=== PATIENT | male | born 1980 | race Caucasian/White ===

== ENCOUNTER 2018-04-05 14:34 | Emergency (ER) | payer OTHER ==
[2018-04-05] MEDS ORDERED: Ondansetron PF 4 MG/2 ML Vial ONE (15:07)
[2018-04-05] MEDS ORDERED: Morphine 4 MG/ML Carpuject ONE ×2 (15:07→16:17)
[2018-04-05 15:09] LABS: #Basophils 0.1 thou/uL (0.0-0.2); #Lymphocytes 1.9 thou/uL (1.20-3.40); #Monocytes 0.5 thou/uL (0.11-0.59); #Neutrophils 4.1 thou/uL (1.40-6.50); %Basophils 1.9 % (0.0-1.0); %Eosinophils 0.6 % (0.0-10.0); %Lymphocytes 28.9 % (21.0-51.0); %Monocytes 7.5 % (0.0-10.0); Mean Corpuscular HGB CONC 33.3 g/dL (32.0-36.0); Mean Corpuscular Hemoglobin 29.7 pg (27.0-31.0); Mean Corpuscular Volume 89.1 fL (78.0-98.0); Mean Platelet Volume 8.2 fL (7.4-10.4); Platelet Count 216 thou/uL (130-400); RBC Distribution Width 11.9 % (11.5-14.5); Red Blood Cell (RBC) Count 5.07 mill/uL (4.70-6.10); White Blood Cell (WBC) Count 6.7 thou/uL (4.8-10.8)
[2018-04-05 15:14] LABS: INR-International Normal Ratio 1.1; Prothrombin Time 13.8 SEC (12.0-14.7)
[2018-04-05 15:23] LABS: ALT (SGPT) 22 U/L (8-55); AST (SGOT) 25 U/L (5-34); Albumin 4.4 g/dL (3.5-5.0); Alkaline Phosphatase 58 U/L (40-150); Anion Gap 15 mmol/L (10-20); BUN (Urea Nitrogen) 13 mg/dL (8.9-20.6); Bilirubin, Total 0.4 mg/dL (0.2-1.2); Calc. Creatinine Clearance 0 mL/min (70-130); Calcium 9.2 mg/dL (7.8-10.44); Carbon Dioxide 23 mmol/L (22-29); Chloride 105 mmol/L (98-107); Estimated GFR-MDRD 82; Globulin 3.1 g/dL (2.4-3.5); Glucose 100 mg/dL (70-105); Lipase 36 U/L (8-78); Protein, Total 7.5 g/dL (6.0-8.3); Sodium 139 mmol/L (136-145)
[2018-04-05 16:15] LABS: Bilirubin Negative (Negative); Blood, Urine Negative (Negative); Clarity Cloudy (Clear); Glucose, Urine (Dipstick) Negative (Negative); Leukocyte Negative (Negative); Nitrite Negative (Negative); Protein, Urine (Dipstick) Negative (Neg-Trace); Urobilinogen 0.2 mg/dL (0.2-1.0)
--- NOTE | 2018-04-05 16:46 | ULT ---
RIGHT UPPER QUADRANT ULTRASOUND: 04/05/18 HISTORY: Right upper quadrant abdominal pain. FINDINGS: Gallbladder is slightly contracted. Tiny amount of echogenic material is seen dependently within the gallbladder suggesting a tiny amount of gallbladder sludge. No gallbladder calculi are seen. There is no gallbladder wall thickening or pericholecystic fluid. The common duct measures 0.2 cm in diameter which is within normal limits. The pancreas is obscured by bowel gas and not able to be evaluated. The visualized portions of the IVC, liver, and right kidney demonstrate a normal sonographic appearan ce. The right kidney measures 11.5 cm in length. IMPRESSION: Tiny amount of sludge within the gallbladder lumen. No gallbladder calculi are seen. Common duct is n ormal in caliber. POS: [facility]
[2018-04-05] MEDS ORDERED: Ketorolac Tromethamine 30 MG/ML VIAL ONE (18:11)
--- NOTE | 2018-04-05 18:28 | CT ---
CT ABDOMEN AND PELVIS WITH IV CONTRAST 04/05/18 HISTORY: Mid back pain and abdominal pain. COMPARISON: None available. FINDINGS: There is minimal linear atelectasis versus scarring at each lung base. The lung bases are otherwise c lear. There are degenerative changes seen at the L4-5 level. Osseous structures otherwise have a normal marcin earance. A few tiny subcentimeter too small to characterize hypodense lesions are seen in lateral segment of t he left hepatic lobe as well as in the right hepatic lobe. The spleen pancreas, bilateral adrenal glands, kidneys, abdominal aorta, and urinary bladder demonst rate a normal CT appearance. There are increased density suture material seen at the cecal apex which may be related to prior appe ndectomy. The appendix is not visualized on this exam. There is suggested focal area of thickening involving the splenic flexure, but this is probably attri butable to incomplete distention, but this cannot be further evaluated. There is no adjacent pericolo gladis inflammatory stranding present. Loops of small bowel are normal in caliber. Small fat containing umbilical hernia is noted. There is no free fluid, fluid collection, or lymphadenopathy seen in the abdomen or pelvis. There is increased fat in the left inguinal canal. IMPRESSION: 1. Scattered very tiny too small to characterize low density foci seen within each lobe of the l iver. 2. Short segment focal area of thickening involving the splenic flexure which is felt to most li fredrick be attributable to incomplete distention in this region. There is no adjacent pericolonic inflam matory changes. 3. No acute findings are seen in the abdomen or pelvis. POS: [facility]
== END 2018-04-05 18:20 | disposition home or self-care (01) ==
LOC: SCSER 14:34
DX: R10.11 Right upper quadrant pain (principal); Z79.899 Other long term (current) drug therapy
CPT/HCPCS: 74177; 76705; 80053; 81003; 83605; 83690; 85025; 85610; 85730; 87086; 96361; 96374; 96375; 96376; J1885; J2270; J2405